=== PATIENT | female | born 1955 | race Caucasian/White ===

== ENCOUNTER 2016-12-05 19:29 | Emergency (ER) | payer BC ==
[~2016-12-05] VITALS: Ht 175.3 cm; Wt 86.2 kg
[2016-12-05 19:47] VITALS: BP_SYST 157
--- NOTE | 2016-12-05 19:59 | NUR ---
Placed in room 1 . Placed on wood experimental mechanic, blood pressure machine and pulse oximeter. To gown for exam. Side rails up.
--- NOTE | 2016-12-05 20:02 | NUR ---
Pt presents to ED with c/o R eye irritation. pt stated she was gardening, felt a piece of brush's branch flew into her eyes, and thought she saw blood in her R eye after the incident.R eye watery and red, no visible object noted, pt denies any change in vision, pain 10. A&Ox4, denies SOB or chestpain, denies N/V/D. Will continue to monitor
--- NOTE | 2016-12-05 20:15 | NUR ---
MD Roberts at bedside examining pt
[2016-12-05 20:30] VITALS: BP_SYST 142
--- NOTE | 2016-12-05 20:30 | NUR ---
Patient given written and verbal discharge instructions and verbalizes understanding. ER MD Roberts discussed with patient the results and treatment provided. Patient in stable condition. ID arm band removed. Rx of Sulfacetamide given. Patient educated on pain management and to follow up with PMD. Pain Scale 0/10 Opportunity for questions provided and answered.
== END 2016-12-05 20:30 | disposition home or self-care (01) ==
LOC: SED 19:29
DX: S05.01XA Injury of conjunctiva and corneal abrasion without foreign body, right eye, initial encounter (principal); X58.XXXA Exposure to other specified factors, initial encounter; Y93.H2 Activity, gardening and landscaping; Y92.89 Other specified places as the place of occurrence of the external cause; Y99.8 Other external cause status
CPT/HCPCS: 99283

== ENCOUNTER 2018-05-23 06:56 | Emergency (ER) | payer BC ==
[~2018-05-23] VITALS: Ht 175.3 cm; Wt 90.7 kg
--- NOTE | 2018-05-23 07:00 | NUR ---
Patient to ER bed 7 to gown for evaluation. Side rails up. Report given to Stephen PATEL.
--- NOTE | 2018-05-23 07:00 | NUR ---
Patient ambulatory to ED a/o x 4 with c/o bloody nose. Reports moderate amount of bleeding x 1 hour. No recent trauma or injury. Denies taking blood thinners. No active bleed noted at this time. -FU -SOB -CP. Pressure applied to site at this time.
--- NOTE | 2018-05-23 07:05 | NUR ---
KAYLEE Dobbs at bedside examining patient.
[2018-05-23 07:06] VITALS: BP_SYST 141
--- NOTE | 2018-05-23 08:00 | NUR ---
Dr. Hong at bedside speaking with pt.
--- NOTE | 2018-05-23 08:35 | NUR ---
Pt resting on gurney, no signs of distress, will continue to monitor.
[2018-05-23 09:48] VITALS: BP_SYST 138
--- NOTE | 2018-05-23 09:48 | NUR ---
Patient given written and verbal discharge instructions and verbalizes understanding. ER MD discussed with patient the results and treatment provided. Patient in stable condition. ID arm band removed. No Rx given. Patient educated on pain management and to follow up with PMD. Pain Scale 0/10. Opportunity for questions provided and answered. Medication side effect fact sheet provided.
== END 2018-05-23 09:48 | disposition home or self-care (01) ==
LOC: SED 06:56
DX: R04.0 Epistaxis (principal); R03.0 Elevated blood-pressure reading, without diagnosis of hypertension
CPT/HCPCS: 99283

== ENCOUNTER 2020-12-28 14:26 | Emergency (ER) | payer BC, OTHER ==
[~2020-12-28] VITALS: Ht 175.3 cm; Wt 90.7 kg
[2020-12-28 14:29] VITALS: BP_SYST 94
[2020-12-28] MEDS ORDERED: TRANEXAMIC ACID 1,000 MG/10 ML VIAL TP ONE (14:45)
[2020-12-28 16:07] VITALS: BP_SYST 134
== END 2020-12-28 16:05 | disposition home or self-care (01) ==
LOC: SED 14:26
DX: R04.0 Epistaxis (principal)
CPT/HCPCS: 99283; J3490